=== PATIENT | male | born 1980 | race Caucasian/White ===

== ENCOUNTER 2021-08-01 05:36 | Emergency (ER) | payer SELFPAY ==
[~2021-08-01] VITALS: Ht 177.8 cm; Wt 113.6 kg
[~2021-08-01 05:36] MED LIST: NO HOME MEDICATIONS
[2021-08-01 05:48] VITALS: TEMP 98.1
[2021-08-01] MEDS ORDERED: ZITHROMAX Z PA250 MG PO (07:17)
[2021-08-01 07:40] VITALS: BP 138/78; PULSE 81
== END 2021-08-01 07:41 | disposition home or self-care (01) ==
LOC: COL.ER 05:36
DX: J06.9 Acute upper respiratory infection, unspecified (principal); I10 Essential (primary) hypertension; Z20.822 Contact with and (suspected) exposure to COVID-19